=== PATIENT | female | born 1975 | race Caucasian/White ===

== ENCOUNTER 2021-01-15 12:47 | Emergency (ER) | payer OTHER, MEDICAID ==
[~2021-01-15] VITALS: Ht 152.4 cm; Wt 49.9 kg
[2021-01-15] MEDS ORDERED: CEPHALEXIN500 MG PO (13:48)
[2021-01-15] MEDS ORDERED: BACTRIM DS TAB1 EACH PO (13:48)
[2021-01-15 13:58] VITALS: BP 132/88
== END 2021-01-15 13:58 | disposition home or self-care (01) ==
LOC: M.ERS 12:47
DX: L03.031 Cellulitis of right toe (principal)